=== PATIENT | male | born 1945 | race Caucasian/White ===

== ENCOUNTER 2024-05-19 11:17 | Outpatient (REF) | payer MEDICARE, OTHER, SELFPAY | END 2024-05-19 11:18 | disposition home or self-care (01) | LOC: HO.LAB 11:17 | PROVIDERS: PCP Family Medicine; Visit Provider Otolaryngology | DX: J30.89 Other allergic rhinitis (principal); T78.2XXA Anaphylactic shock, unspecified, initial encounter | CPT/HCPCS: 36415; 82785; 86003 ==